=== PATIENT | male | born 1945 | race Caucasian/White ===

== ENCOUNTER → 2018-05-05 15:30 | Outpatient (CLI) | payer OTHER, SELFPAY | PROVIDERS: Referring Provider Otolaryngology Otolaryngology/Facial Plastic Surgery; Visit Provider Otolaryngology Otolaryngology/Facial Plastic Surgery | DX: J32.0 Chronic maxillary sinusitis (principal) | CPT/HCPCS: 87070; 87077; 87186; 87205 ==

== ENCOUNTER 2021-05-18 16:52 | Outpatient (CLI) | payer OTHER, SELFPAY ==
--- NOTE | 2021-05-18 13:40 | NASAL_PTH ---
PATIENT: PRANAY CUTLER Jr. LOC: [facility] U#:[id number] AGE/SX: 75/M ROOM: RE05/18/[address]: Dr. Elieser Richmond MD : 1945 BED: DIS: 05/18/2021 SPEC #: [id number] RECD: 05/18/21 16:52 STATUS: GISEL HARRIS #: [id number] MONICA: 05/18/21 13:[address]: Elieser Richmond DEPT: SURGICAL PATHOLOGY RECD BY: Fe Reed ENTERED: 05/21/21 10:29 SP TYPE: NASAL SPEC OTHR DR: Dr. Leonel Valles MD Tissues: Soft tissues, NOS Procedures: Surgery Specimen Level IV HEADER OPERATION: Not noted PRE-OP DIAGNOSIS: Right nasal mass TISSUE SUBMITTED: Right nasal mass MICROSCOPIC DIAGNOSIS Right nasal mass, biopsy: Pyogenic granuloma with ulceration and associated purulent material and acute inflammation. AM:leon 05/22/2021 MICROSCOPIC DESCRIPTION Slides are reviewed. GROSS DESCRIPTION Received is one container labeled with the patient's name and not further designated. The specimen consists of a polypoid fragment of wilks tissue measuring 0.8 x 0.7 x 0.3 cm. The specimen is bisected and totally submitted in one cassette. / AM:leon 05/21/2021 TC:2 CPT: 24031
== END 2021-05-18 23:59 | disposition home or self-care (01) ==
PROVIDERS: PCP Internal Medicine; Visit Provider Otolaryngology
DX: L98.0 Pyogenic granuloma (principal)
CPT/HCPCS: 88305

== ENCOUNTER 2021-06-18 09:15 | Outpatient (CLI) | payer MEDICARE, SELFPAY ==
--- NOTE | 2021-06-18 09:40 | RAD_ITS ---
EXAM: DOUBLE CONTRASTED ESOPHAGRAM. INDICATION: 75-year-old male presenting with dysphagia.. TECHNIQUE: Standard esophagram with barium and effervescent capsules. Fluoroscopy time 2:33 minutes. FINDINGS: Normal esophageal motility was observed. No evidence of esophageal diverticula, strictures or intraluminal masses. Unremarkable transit of contrast through the esophagus. Mild irregularity in the esophageal contractility. Angulation of the gastroesophageal junction visualized that resulted in retention of the barium pill, barium pill did not pass however dissolved with fluid. No evidence of gastroesophageal reflux was seen. RAD/Esophagus Dual Contrast IMPRESSION: Mild irregularity in the esophageal contractility. Delayed transit of barium pill at the gastroesophageal junction. Electronically Signed: Kade Griffiths MD at 11:51 EDT Reading Location ID and State: [facility] / [place] Tel , Service support ,
== END 2021-06-18 23:59 | disposition home or self-care (01) ==
LOC: RAD 09:20
PROVIDERS: PCP Internal Medicine; Visit Provider Otolaryngology
DX: R13.10 Dysphagia, unspecified (principal)
CPT/HCPCS: 74221

== ENCOUNTER → 2021-11-15 | Outpatient (CLI) | payer MEDICARE, SELFPAY ==
--- NOTE | 2021-11-15 13:01 | ECHOD_ITS ---
Reason For Study: MURMUR Procedure This was a 2D Doppler, Color Flow transthoracic echocardiogram. The study was technically difficult. Exam performed in department. Left Ventricle Normal LV size. Left ventricular systolic function is normal. The estimated ejection fraction is 65 %. No evidence for diastolic dysfunction. No regional wall motion abnormalities noted. Right Ventricle Normal RV size. Normal systolic function. Atria Normal left atrium. Normal right atrium. No doppler evidence for ASD. Mitral Valve There is mild mitral annular calcification. Normal mitral valve. Trivial mitral valve insufficiency. Tricuspid Valve Normal tricuspid valve. Trivial tricuspid valve insufficiency. Right ventricular systolic pressure estimated to be 28 mmHg. Aortic Valve The aortic valve is not well visualized, however, there appears to be diffuse thickening, calcification, and partial restriction. Moderate aortic stenosis. Pulmonic Valve The pulmonic valve is not well visualized. Great Vessels Normal sized aortic root. Pericardium/Pleural No pericardial effusion. MMode/2D Measurements & Calculations LVIDd: 4.8 cm IVSd: 1.0 cm LVOT diam: 2.0 cm LVIDs: 3.2 cm LVPWd: 1.0 cm LVOT area: 3.2 cm2 RVDd: 3.7 cm FS: 33.0 % Ao root diam: 3.3 cm LAV(MOD-bp): 54.6 ml Aortic Valve Planimetry: 1.1 cm2 LAV(MOD-bp) Indexed: 27.5 ml/m2 LAV(MOD-sp2): 51.3 ml LAV(MOD-sp4): 51.6 ml LA dimension(2D): 3.7 cm LA A4 area: 19.1 cm2 RA A4 area: 17.9 cm2 Time Measurements MV dec time: 0.27 sec Doppler Measurements & Calculations MV E max zhen: 92.9 cm/sec Lat Peak E' Zhen: 9.2 cm/sec Med Peak E' Zhen: 9.8 cm/sec MV A max zhen: 101.0 cm/sec E/E' lat: 10.1 E/E' med: 9.5 MV E/A: 0.92 MV dec slope: 341.0 cm/sec2 Ao V2 max: 334.4 cm/sec LV V1 max: 105.4 cm/sec Ao max P.8 mmHg LV V1 max P.4 mmHg Ao V2 mean: 248.9 cm/sec LV V1 mean P.8 mmHg Ao mean P.9 mmHg LV V1 mean: 79.5 cm/sec Ao V2 VTI: 75.7 cm LV V1 VTI: 24.5 cm JUN(I,D): 1.0 cm2 JUN(V,D): 1.0 cm2 SV(LVOT): 79.1 ml PA V2 max: 107.7 cm/sec TR max zhen: 250.0 cm/sec TR max P.0 mmHg ECHO/Echo Complete Interpretation Summary The study was technically difficult. Left ventricular systolic function is normal. The estimated ejection fraction is 65 %. There is mild mitral annular calcification. Trivial mitral valve insufficiency. Trivial tricuspid valve insufficiency. Moderate aortic stenosis. Right ventricular systolic pressure estimated to be 28 mmHg. No evidence for diastolic dysfunction. Ordering Physician: Toi Taylor Referring Physician: Leonel Valles Performed By: Stephanie Finch, DUSTY, RVT
--- NOTE | 2021-11-15 13:01 | CDU_ITS ---
Reason For Study: Carotid artery disease Rt. Velocities/BP Lt. Velocities/BP Prox CCA 91.2/16.3 cm/sec. Prox CCA 88.8/20 cm/sec. Mid CCA 85.1/16.3 cm/sec. Mid CCA 87.6/21.2 cm/sec. Dist CCA 99.8/21.2 cm/sec. Dist CCA 72.8/17.6 cm/sec. Prox ICA 67.9/20 cm/sec. Prox ICA 198.2/46.2 cm/sec. Mid ICA 66.7/17.6 cm/sec. Mid ICA 1304/24.1 cm/sec. Dist ICA 65.4/16.3 cm/sec. Dist ICA 92.9/21.4 cm/sec. Rt. ICA/CCA = 0.74. Lt. ICA/CCA = 2.26. Prox ECA 96.1/11.4 cm/sec. Prox ECA 202.9/13.7 cm/sec. Rt. Vert. 47/12.6 cm/sec. Lt. Vert. 50.9/13.5 cm/sec. Right Extracranial There is intimal thickening but no significant atherosclerotic plaque noted in the right common carotid artery. There is heterogeneous, irregular atherosclerotic plaque noted in the right internal carotid artery. There is heterogeneous, irregular atherosclerotic plaque noted in the right external carotid artery. Antegrade flow is noted in the right vertebral artery. Left Extracranial There is intimal thickening but no significant atherosclerotic plaque noted in the left common carotid artery. There is heterogeneous, irregular atherosclerotic plaque noted in the left internal carotid artery. There is heterogeneous, irregular atherosclerotic plaque noted in the left external carotid artery. Antegrade flow is noted in the left vertebral artery. Procedure Carotid Duplex [id number]. This is a Carotid Duplex examination using B-mode, color flow and specral Doppler. Exam performed in department. VL/Carotid Duplex Ultrasound Interpretation Summary Mild (<50%) stenosis right extracranial internal carotid. Moderate (50-69%) stenosis left extracranial internal carotid. Patent and antegrade vertebrals bilaterally. Ordering Physician: Toi Taylor Referring Physician: Leonel Valles M.D. Performed By: Tali Dixon RVT
== END | disposition home or self-care (01) ==
LOC: CVS 12:56
PROVIDERS: PCP Internal Medicine; Referring Provider Internal Medicine Cardiovascular Disease; Visit Provider Internal Medicine Cardiovascular Disease
DX: R06.02 Shortness of breath (principal); I65.22 Occlusion and stenosis of left carotid artery; I10 Essential (primary) hypertension; E78.00 Pure hypercholesterolemia, unspecified; I35.0 Nonrheumatic aortic (valve) stenosis
CPT/HCPCS: 93306; 93880

== ENCOUNTER 2022-02-05 09:59 | Outpatient (CLI) | payer MEDICARE, SELFPAY ==
[2022-02-05 11:19] LABS: Absolute Lymphocyte Count 1.36 X10^3/uL (0.83-4.51); Absolute Neutrophil Count 4.2 X10^3/uL (2.0-7.7); Basophil# 0.06 X10^3/uL; Basophil% 0.9 % (0-1); Eosinophil# 0.31 X10^3/uL; Eosinophils% 4.7 % (0-5); Hemoglobin 14.1 g/dL (13.0-16.5); Lymphocyte # 1.36 X10^3/ul (0.83-4.51); Lymphocyte % 20.5 % (19-41); Mean Corp Hgb Conc 32.8 g/dL (32-36); Mean Corpuscular Volume 94.5 fL (80-94); Mean Platelet Vol. 9.2 fl (6.2-12.0); Monocyte# 0.65 X10^3/uL; Monocyte% 9.8 % (0-10); NRBC Flagged by Analyzer 0 % (0-5); Neutrophil # 4.23 X10^3/uL (2.7-7.7); Neutrophil % 63.6 % (47-70); Platelet Count 360 K/mm3 (150-450); RBC Distribution Width CV 12.8 % (11.6-14.6); RBC Distribution Width SD 44.2 fl (35.1-43.9); Red Blood Count 4.55 M/mm3 (4.6-6.2); White Blood Count 6.6 K/mm3 (4.4-11.0)
[2022-02-05 11:41] LABS: BNP,B-Type NATRIURETIC PEPTIDE 5.1 pg/mL (0-100)
[2022-02-05 11:55] LABS: Anion Gap 4 (5-15); BUN 15 mg/dL (7-18); BUN/Creat Ratio 15.2 RATIO (10-20); Calcium,Total 9.6 mg/dL (8.5-10.1); Chloride 101 mmol/L (98-107); Creatinine, Serum 0.99 mg/dL (0.70-1.30); EST Glomerular Filtration Rate 78 mL/min (>60); Est Glom Filt Rate - Afr Amer 95 mL/min (>60); Glucose 120 mg/dL (74-106); Potassium 3.3 mmol/L (3.5-5.1); Sodium Level 140 mmol/L (136-145); Thyroid Stim Hormone (TSH) 3.73 uIU/mL (0.358-3.74)
== END 2022-02-05 23:59 | disposition home or self-care (01) ==
LOC: LAB 10:00
PROVIDERS: PCP Internal Medicine; Referring Provider Nurse Practitioner Family; Visit Provider Nurse Practitioner Family
DX: R06.02 Shortness of breath (principal); I35.0 Nonrheumatic aortic (valve) stenosis; R91.8 Other nonspecific abnormal finding of lung field; E78.00 Pure hypercholesterolemia, unspecified
CPT/HCPCS: 36415; 80048; 83880; 84443; 85025

== ENCOUNTER → 2022-02-19 | Outpatient (CLI) | payer MEDICARE, SELFPAY ==
--- NOTE | 2022-02-19 14:47 | PFTCOMP_ITS ---
COMPLETE PULMONARY FUNCTION TEST INTERPRETATION Brief HPI: Patient is a 76-year-old male, currently under the care of Ramsey Linares, who presents to [facility] for complete pulmonary function tests secondary to diagnosis of dyspnea. Respiratory therapist reports good effort and reproducible results. Interpretation: Forced expiration spirometry shows no large airways obstructive ventilatory defect with an FEV1 of 115% predicted. There is no significant bronchodilator response by strict ATS criteria. Spirograms are of good quality and plateau normally. The respiratory flow volume loop shows a normal pattern. Lung volumes by body plethysmography show a normal total lung capacity at 4.98 L, 100% predicted. All other lung volumes are within normal limits. Diffusion capacity by carbon monoxide is normal at 74% predicted. The airway resistance is normal. No previous pulmonary function tests were available for review. Impression: These pulmonary function tests are within normal limits
== END | disposition home or self-care (01) ==
LOC: PSN 12:24
PROVIDERS: PCP Internal Medicine; Visit Provider Nurse Practitioner Family
DX: R06.02 Shortness of breath (principal)
CPT/HCPCS: 94060; 94726; 94729

== ENCOUNTER → 2022-03-05 | Outpatient (CLI) | payer MEDICARE, SELFPAY ==
--- NOTE | 2022-03-05 11:45 | STRESSREP ---
Stress Test Report Date: 03-05-2022 Procedure: Pharmacologic stress nuclear imaging study Indications: Shortness of breath/dyspnea; aortic valve disease; carotid artery disease Consent: Per the patient Procedure: The patient underwent pharmacologic (Regadenoson 0.4mg ) evaluation with a peak heart rate of 111 beats per minute (77%predicted maximal heart rate) and a resting blood pressure of 154/84 mmHg and a peak blood pressure of 160/90 mmHg. The baseline ECG demonstrated normal sinus rhythm. The peak pharmacologic ECG demonstrated no obvious ECG change. There were no cardiac dysrhythmias pretest, during pharmacologic infusion, or recovery. There was no complaint of chest discomfort during pharmacologic infusion or recovery. The examination was discontinued secondary to completion of protocol. Impression: 1. Pharmacologic (Regadenoson) evaluation 2. Peak pharmacologic ECG with no obvious ECG changes. 3. There were no cardiac dysrhythmias pretest, during pharmacologic infusion, or recovery. 4. Nuclear images pending Myocardial perfusion imaging study: Technique: The patient was injected with 11.5 millicuries of technetium 99m Cardiolite and subsequently rest SPECT Cardiolite nuclear imaging was obtained in the horizontal long, vertical long, and short axis views. The patient underwent pharmacologic (Regadenoson) evaluation with a peak heart rate of 111 beats per minute (77% percent predicted maximal heart rate) and a resting blood pressure of 154/84 mmHg and a peak blood pressure of 160/90 mmHg. The patient was injected with 34.1 millicuries of technetium 99m Cardiolite and subsequently stress SPECT Cardiolite nuclear imaging was obtained in the horizontal long, vertical long, and short axis views. A gated Cardiolite study at peak stress was obtained. Interpretation: Rest and stress SPECT Cardiolite nuclear imaging status post realignment, normalization, and attenuation correction demonstrate relative uniform tracer uptake and myocardial perfusion appearing within normal limits. There is end systolic thickening and brightening. The gated Cardiolite study demonstrates myocardial thickening and inward wall motion. The reported LVEF is 72%. Impression: 1. Rest and stress SPECT Cardiolite nuclear imaging demonstrate relative uniform tracer uptake and myocardial perfusion appearing within normal limits. 2. The gated Cardiolite study reports an LVEF of 72%. This note was generated with [employer]ule[employer] software. It may contain incorrect words, spelling, and punctuation that were not noted in checking the note before signing.
== END | disposition home or self-care (01) ==
LOC: CVS 07:14
PROVIDERS: PCP Internal Medicine; Visit Provider Nurse Practitioner Family
DX: R06.02 Shortness of breath (principal); I77.9 Disorder of arteries and arterioles, unspecified; E11.9 Type 2 diabetes mellitus without complications; G47.33 Obstructive sleep apnea (adult) (pediatric); I10 Essential (primary) hypertension; E78.00 Pure hypercholesterolemia, unspecified; I35.0 Nonrheumatic aortic (valve) stenosis
CPT/HCPCS: 78452; 93017; A9500; A4216; J2785

== ENCOUNTER 2023-03-07 16:38 | Emergency (ER) | payer MEDICARE, SELFPAY ==
[2023-03-07 16:39] VITALS: BP 144/74; PULSE 91; RESP 14; TEMP 36.8; O2SAT 98; BMI 29.5
--- NOTE | 2023-03-07 17:44 | US_ITS ---
INDICATION: SWELLING EXAMINATION: Ultrasound US Venous Duplex LE Bilat Complete TECHNIQUE: Richardson scale, pulse wave, and color flow Doppler imaging was performed of the lower extremity venous system. The bilateral greater saphenous, common femoral, femoral, and popliteal veins were interrogated. COMPARISON: FINDINGS: There is normal compression, augmentation, and signal throughout the visualized deep lower extremity veins. No mass or fluid collection. US/Venous Duplex Imag/Obdulio Extrem IMPRESSION: No sonographic evidence of deep venous thrombosis bilaterally. Electronically Signed: Tomer Hanks DO at 18:43 EST Reading Location ID and State: [facility] / [place] Tel [phone], Service support ,
--- NOTE | 2023-03-07 17:59 | ED.VIS.LOWEX ---
HPI History of Present Illness Chief Complaint: Lower Extremity Injury Informant: patient and spouse/S.O. Narrative Narrative: Patient presents with concern for DVT. Patient states he has had alternating swelling of right left leg intermittently since the end of November since he had cervical spine surgery. No numbness or tingling now. His therapist noted it today called his primary physician who referred him in here. He is not having coughing or trouble breathing. He has never had a DVT. He states his left leg was more swollen and painful this morning but it is gone down again. This is a typical pattern. [facility] Medical History Adrenal incidentaloma Essential hypertension Left carotid stenosis Multiple lung nodules on CT Nonrheumatic aortic (valve) stenosis ERNESTO (obstructive sleep apnea) Pure hypercholesterolemia Solitary nodule of right lobe of thyroid Type 2 diabetes mellitus Umbilical hernia Home Medications lisinopril 20 mg-hydrochlorothiazide 12.5 mg tablet 1 tab PO DAILY 03/04/23 [History Last Taken Unknown] oxycodone 5 mg tablet 5 mg PO PRN 03/04/23 [History Last Taken Unknown] tamsulosin 0.4 mg capsule 0.4 mg PO DAILY 03/04/23 [History Last Taken Unknown] Allergy/AdvReac Type Severity Reaction Status Date / Time No Known Allergies Allergy Verified 03/07/23 16:39 Family History Father CAD (coronary artery disease) Hypertension Mother Hypertension Surgical History History of back surgery (01/17/23) History of carpal tunnel surgery History of tonsillectomy Hx of cervical spine surgery (~11/29/22) Social History Smoking Status: Never smoker alcohol intake: never substance use type: does not use caffeine: Yes Type: carbonated beverages Number of servings: 3 and tea Number of servings: 8 ROS ROS ED Constitutional Constitutional ED: Denies chills or fever(s) ENT ENT ED: Denies rhinorrhea or sore throat Cardiovascular Cardiovascular: Denies chest pain, palpitations or racing heartbeat Respiratory/Chest Respiratory/Chest: Denies cough or dyspnea Gastrointestinal Gastrointestinal: Denies abdominal pain, nausea or vomiting Musculoskeletal Musculoskeletal: Reports other Details: See history of present illness Neurologic Neurologic: Denies paresthesias or weakness Hematologic/Lymphatic Hematologic/Lymphatic: Denies easy bleeding or easy bruising Allergic/Immunologic Allergic/Immunologic ED: Denies urticaria EXAM Physical Exam Narrative Exam Narrative: CONSTITUTIONAL: Patient is nontoxic in appearance. The patient looks comfortable. Work of breathing looks normal. HEENT: No notable trauma. Mucous membranes moist. EYES: No conjunctival injection. No pallor. NECK:No JVD. No stridor. CARDIOVASCULAR: Regular rate. Regular rhythm. No notable murmur. No JVD. RESPIRATORY: No respiratory distress. Breathing is unlabored. No wheezes. No rhonchi. No rales. No pain with a deep breath. No chest wall tenderness. Saturations are normal at 98% on room air showing no hypoxia GASTROINTESTINAL: Not distended. Bowel sounds are normal. No tenderness. GENITOURINARY: No CVA tenderness. MUSCULOSKELETAL: Atraumatic. Patient does have some bilateral peripheral edema. A little bit of pitting over the distal anterior ankle. No erythema or warmth. Extremities are not cold or notably hot. No rashes. I feel no cord. There is no asymmetry at this time. NEUROLOGICAL: Patient is alert and appropriate. No focal deficit noted. SKIN: No noted rashes. No diaphoresis. PSYCHIATRIC: Patient is calm. Mood is appropriate. Const Vital Signs: 03/07/23 16:39 Temperature 98.3 F Temperature Source Temporal Pulse Rate 91 Respiratory Rate 14 Blood Pressure 144/74 H Blood Pressure Mean 97 Pulse Ox 98 Oxygen Delivery Method Room Air MDM MDM MDM Narrative Medical decision making narrative: Legs are negative for DVT. Patient has had symptoms in November. Further workup can be done by his primary physician. Radiography Diagnostic Testing: Clinical Impression(s) from Imaging Studies Venous Duplex 03/07/23 17:44 IMPRESSION: No sonographic evidence of deep venous thrombosis bilaterally. Electronically Signed: Tomer Hanks DO at 18:43 EST Reading Location ID and State: [facility] / [place] Tel [phone], Service support , Discharge Plan Triage Chief Complaint: Lower Extremity Injury ED Provider: David Bland Dx/Rx/DC Orders Clinical Impression: Swelling of lower leg Instructions: ED Lymphedema Prescriptions: No Action lisinopril-hydrochlorothiazide 20-12.5 mg tablet 1 tab PO DAILY tamsulosin 0.4 mg capsule 0.4 mg PO DAILY Patient Comments: TAKE 1 CAPSULE BY MOUTH TWICE DAILY oxycodone 5 mg tablet 5 mg PO PRN Patient Comments: Take 1 tablet by mouth every 8 hours as needed for pain for up to 5 days. Primary Care Provider: Leonel Valles Referrals: Leonel Valles MD [Primary Care Provider] - As soon as possible Disposition Disposition: Home, Self Care
[2023-03-07 19:00] VITALS: RESP 16
== END 2023-03-07 19:54 | disposition home or self-care (01) ==
PROVIDERS: Emergency Provider Emergency Medicine; PCP Internal Medicine; Visit Provider Emergency Medicine
DX: M79.89 Other specified soft tissue disorders (principal); E11.9 Type 2 diabetes mellitus without complications; I10 Essential (primary) hypertension; E78.00 Pure hypercholesterolemia, unspecified; Z79.899 Other long term (current) drug therapy
CPT/HCPCS: 93970; 99282

== ENCOUNTER → 2023-03-24 | Outpatient (CLI) | payer MEDICARE, SELFPAY ==
--- NOTE | 2023-03-24 10:04 | ECHOCS_ITS ---
Reason For Study: Murmur, SOB Procedure This was a 2D Doppler, Color Flow transthoracic echocardiogram. The study was technically difficult. Contrast injection was performed. Exam performed in department. Left Ventricle Normal LV size. Left ventricular systolic function is normal. The estimated ejection fraction is 65 %. No regional wall motion abnormalities noted. Right Ventricle Normal RV size. Normal systolic function. Atria Normal left atrium. Normal right atrium. Mitral Valve Normal mitral valve. Tricuspid Valve Normal tricuspid valve. Aortic Valve Trisinus/trileaflet aortic valve. Moderate focal aortic valve calcification. Peak aortic valve gradient 53 mmHg. Mean aortic valve gradient 29 mmHg. Moderate aortic stenosis. Great Vessels Normal aortic root. The pulmonary artery is normal size. Normal inferior vena cava. Pericardium/Pleural No pericardial effusion. Medication 20 gauge I.V. with prn adaptor inserted into right arm. Diluted definity 2ml given slow IV push to enhance endocardial definition. Performed a rapid injection of agitated mix of 9 cc saline and 1cc air to assess for atrial septal defect. MMode/2D Measurements & Calculations LVIDd: 4.4 cm IVSd: 0.95 cm LVOT diam: 2.0 cm LVIDs: 2.8 cm LVPWd: 0.91 cm LVOT area: 3.2 cm2 RVDd: 3.5 cm FS: 36.8 % Ao root diam: 3.6 cm LAV(MOD-bp): 53.5 ml LVAd ap4: 33.0 cm2 LA dimension: 4.4 cm LAV(MOD-bp) Indexed: 29.3 ml/m2 LVLd ap4: 8.8 cm LAV(MOD-sp2): 55.0 ml EDV(MOD-sp4): 102.3 ml LAV(MOD-sp4): 47.6 ml EDV(sp4-el): 104.7 ml LVAs ap4: 19.9 cm2 LVLs ap4: 7.7 cm ESV(MOD-sp4): 43.8 ml ESV(sp4-el): 43.7 ml EF(MOD-sp4): 57.2 % EF(sp4-el): 58.3 % SV(MOD-sp4): 58.5 ml SV(sp4-el): 61.0 ml LA A4 area: 17.7 cm2 RA A4 area: 15.4 cm2 TAPSE: 2.0 cm Time Measurements MV dec time: 0.19 sec Doppler Measurements & Calculations MV E max zhen: 87.5 cm/sec Lat Peak E' Zhen: 8.8 cm/sec Med Peak E' Zhen: 9.2 cm/sec MV A max zhen: 104.0 cm/sec E/E' lat: 10.0 E/E' med: 9.6 MV E/A: 0.84 MV V2 max: 116.3 cm/sec MV P1/2t max zhen: 100.0 cm/sec Ao V2 max: 362.5 cm/sec MV max P.4 mmHg MV P1/2t: 60.6 msec Ao max P.6 mmHg MV V2 mean: 57.1 cm/sec Ao V2 mean: 252.8 cm/sec MV mean P.6 mmHg MV dec slope: 483.5 cm/sec2 Ao mean P.0 mmHg MV V2 VTI: 27.0 cm MVA(P1/2t): 3.6 cm2 Ao V2 VTI: 82.9 cm AV (velocity ratio): 0.26 MVA(VTI): 2.5 cm2 JUN(I,D): 0.82 cm2 JUN(V,D): 0.76 cm2 LV V1 max: 87.0 cm/sec SV(LVOT): 68.3 ml PA V2 max: 99.5 cm/sec LV V1 max P.0 mmHg PA V2 mean: 63.8 cm/sec LV V1 mean P.5 mmHg LV V1 mean: 56.7 cm/sec LV V1 VTI: 21.5 cm ECHO/Echo Complete W/ Contrast Interpretation Summary Normal LV size. Left ventricular systolic function is normal. The estimated ejection fraction is 65 %. Moderate focal aortic valve calcification. Mean aortic valve gradient 29 mmHg. Moderate aortic stenosis. Contrast injection was performed. Ordering Physician: Dimitris Bo Referring Physician: Leonel Valles M.D. Performed By: Taurus Mcwilliams RCS
== END | disposition home or self-care (01) ==
PROVIDERS: PCP Internal Medicine; Referring Provider Internal Medicine Cardiovascular Disease; Visit Provider Internal Medicine Cardiovascular Disease
DX: R06.02 Shortness of breath (principal)
CPT/HCPCS: 93306; Q9957; A4216; C8929

== ENCOUNTER → 2023-05-29 | Outpatient (CLI) | payer MEDICARE, SELFPAY | END | disposition home or self-care (01) | LOC: LABSPEC 15:25 | PROVIDERS: PCP Internal Medicine; Referring Provider Otolaryngology Otolaryngology/Facial Plastic Surgery; Visit Provider Otolaryngology Otolaryngology/Facial Plastic Surgery | DX: J32.8 Other chronic sinusitis (principal) | CPT/HCPCS: 87070; 87205 ==

== ENCOUNTER → 2023-09-09 | Outpatient (CLI) | payer MEDICARE, SELFPAY ==
--- NOTE | 2023-09-09 15:02 | CT_ITS ---
INDICATION: CHRONIC SINUSITIS EXAMINATION: CT SINUSES - CT Sinuses W/O Contrast Injection TECHNIQUE: Helically acquired images were obtained of the paranasal sinuses. The protocol utilizes one or more of the following dose reduction techniques: automated exposure control, adjustment of mA and/or kV according to patient size,and/or use of iterative reconstruction technique. IV Contrast dosage and agent: RADIATION DOSAGE (If Supplied By Facility): CTDIvol = ( 33.06 ) mGy, DLP = ( 796.66 ) mGycm COMPARISON: FINDINGS: FRONTAL SINUSES AND RECESSES: Minimal mucosal thickening of the frontal sinus. ETHMOID AIR CELLS: Clear. MAXILLARY SINUSES: Clear. OSTIOMEATAL COMPLEXES: Clear and normally formed. SPHENOID SINUSES: Clear. SPHENOETHMOIDAL RECESSES: Clear. ANCILLARY FINDINGS: NASAL TURBINATES: Unremarkable. NASAL SEPTUM: Midline. ORBITS: Unremarkable. VISUALIZED DENTITION: No periodontal osseous erosion. ANTERIOR CRANIAL FOSSA: Unremarkable. CT/Sinus/Facial Bone IMPRESSION: Minimal mucosal thickening of the frontal sinus. Electronically Signed: Tomer Hanks DO at 16:13 EDT Reading Location ID and State: [facility] / [place] Tel [phone], Service support ,
== END | disposition home or self-care (01) ==
PROVIDERS: PCP Internal Medicine; Referring Provider Otolaryngology; Visit Provider Otolaryngology
DX: J32.8 Other chronic sinusitis (principal)
CPT/HCPCS: 70486

== ENCOUNTER 2024-06-01 07:19 | Emergency (ER) | payer MEDICARE, SELFPAY ==
[2024-06-01 07:20] VITALS: BP 163/117; PULSE 82; RESP 16; TEMP 36.5; O2SAT 98; BMI 33.5
[2024-06-01] MEDS: Mixture 30 ML Bottle 20 ML TOPICAL (07:34)
--- NOTE | 2024-06-01 07:35 | EDS_ITS ---
HPI History of Present Illness Chief Complaint: Nosebleed Detail of Chief Complaint: Spontaneous epistaxis left naris Informant: patient and spouse/S.O. Onset/Context/Timing Onset: Today (0400) Context: Sudden Onset Timing: Continuous and Waxes and wanes Quality: Bright red blood left nares and posterior pharynx Location: Left side Current Severity: Mild Maximum Severity: Moderate Worsened by: Nothing Relieved by: Nothing Associated Symptoms Associated Symptoms: None Narrative Narrative: Patient is a 78-year-old male. He is seen by Dr. Elieser Richmond. He states he has had his nose cauterized more than once. He presents with epistaxis that awoke him from sleep at 0400. He is on no anticoagulant or antithrombotic. He does report sinus pressure for the past 2 weeks. He does have history of hypertension. He states he took his blood pressure medication this morning. His blood pressure in triage was 163/117. He states his pressure is normally 140 systolic on the high side 150. He denies visual, ocular or auditory symptoms. There is no history of bruising easily. Prior similar symptoms: Yes Recent Illness/Hospitalization: No PFSH PFSH Medical History Left carotid stenosis Adrenal incidentaloma Multiple lung nodules on CT Umbilical hernia Solitary nodule of right lobe of thyroid ERNESTO (obstructive sleep apnea) Essential hypertension Type 2 diabetes mellitus Pure hypercholesterolemia Nonrheumatic aortic (valve) stenosis Home Medications ?Medication ?Instructions ?Recorded ?Last Taken ?Type lisinopril 20 1 tab PO DAILY 03/04/23 Unkn own History mg-hydrochlorothiazide 12.5 mg tablet oxycodone 5 mg tablet 5 mg PO PRN 03/04/23 Unknown History tamsulosin 0.4 mg capsule 0.4 mg PO DAILY 03/04/23 Unk nown History cephalexin 500 mg capsule 500 mg PO Q12 #10 CAPSULES 0 06/01/24 Unknown Rx Allergy/AdvReac Type Severity Reaction Status Date / Time No Known Allergies Allergy Verified 06/01/24 07:19 Family History Father CAD (coronary artery disease) Hypertension Mother Hypertension Surgical History Hx of cervical spine surgery (~11/29/22) History of back surgery (01/17/23) History of carpal tunnel surgery History of tonsillectomy Social History Smoking Status: Never smoker alcohol intake: never substance use type: does not use caffeine: Yes Type: carbonated beverages Number of servings: 3 and tea Number of servings: 8 ROS ROS ED Constitutional Constitutional ED: Denies chills, fever(s), subjective or sweats Eyes Eyes: Denies blurry vision or change in vision ENT ENT ED: Reports other Details: Per HPI narrative ; Denies rhinorrhea or sore throat Cardiovascular Cardiovascular: Denies chest pain Respiratory/Chest Respiratory/Chest: Denies dyspnea Hematologic/Lymphatic Hematologic/Lymphatic: Denies anemia, easy bleeding or easy bruising EXAM Physical Exam Const Vital Signs: 06/01/24 07:20 Temperature 97.7 F L Temperature Source Temporal Pulse Rate 82 Respiratory Rate 16 Blood Pressure 163/117 H Blood Pressure Mean 132 Pulse Ox 98 Oxygen Delivery Method Room Air Positive well nourished and well developed General Appearance ED: well developed and NAD; Negative for pallor HEENT Reports moist mucous membranes HEENT Narrative: Patient has tissue left naris. Tissue is bloody. There is no obvious blood in the posterior pharynx. There is no abnormality noted on the right side. There is blood noted on the left. There is no obvious source. With use of a nasal speculum able to see up to the inferior turbinate with no obvious bleeding source. Eyes PERRL and EOMs intact bilaterally General Eye ED: Negative for pale conjunctiva or scleral icterus Resp normal respiratory effort and clear to auscultation bilaterally Cardio regular rate, regular rhythm, S1 normal heart sound and S2 normal heart sound; Negative for no murmurs Rate: other Other Details: Crescendo and decrescendo and murmur consistent with mitral valve prolapse grade 2 Extremity normal to inspection Neuro oriented x3 and CN's II-XII intact bilaterally Sensorium / Orientation: alert Psych mental status grossly normal Skin no rashes or lesions noted, no wounds and skin turgor normal General Skin Exam: Negative for jaundice or pallor MDM MDM MDM Narrative Medical decision making narrative: Patient with spontaneous epistaxis. This may be related to his blood pressure. Will anesthetize nares using Austen solution. Will reexam and determine if there is a site of bleeding since he states he has been cauterized in the past. If there is no site of bleeding and bleeding continues will place pack. Since patient is not hemodynamically stable, has no orthostatic symptoms and does not appear pale in my opinion there is no indication for laboratory testing and specifically CBC. History & Record Review Additional record(s) reviewed:: Prior outpatient record (Outpatient record November 2022 for orthopedic clearance, essential hypertension) and Prior ED visit (ER visit March 07, 2023 for swelling of lower extremity.) Treatment and Re-Evaluation Comments:: Patient ambulated without difficulty. He was discharged to home. Procedures Other Procedures Procedure(s): Cotton saturated with Austen solution was removed. There is no bleeding source noted inferior the turbinates. Patient states he still has bleeding and has blood going down the back of his throat. In light of this and 8 cm Merocel pack was placed on the left side. Will reassess in 15 minutes. He received first dose of cephalexin in the emergency department. Discharge Plan Triage Chief Complaint: Nosebleed ED Provider: Luke Venegas Dx/Rx/DC Orders Clinical Impression: Acute posterior epistaxis, Type 2 diabetes mellitus, Elevated blood pressure reading with diagnosis of hypertension Instructions: ED Epistaxis (Adult) Prescriptions: New cephalexin 500 mg capsule 500 mg PO Q12 Qty: 10 0RF No Action lisinopril-hydrochlorothiazide 20-12.5 mg tablet 1 tab PO DAILY tamsulosin 0.4 mg capsule 0.4 mg PO DAILY Patient Comments: TAKE 1 CAPSULE BY MOUTH TWICE DAILY oxycodone 5 mg tablet 5 mg PO PRN Patient Comments: Take 1 tablet by mouth every 8 hours as needed for pain for up to 5 days. Primary Care Provider: Leonel Valles Referrals: Elieser Richmond MD [Med Staff - Active Staff] - 3-5 Days Leonel Valles MD [Primary Care Provider] - Print Language: Frisian Disposition Disposition: Home, Self Care
[2024-06-01] MEDS: Cephalexin 250 MG Capsule 500 MG PO (08:11)
== END 2024-06-01 08:45 | disposition home or self-care (01) ==
PROVIDERS: Emergency Provider Emergency Medicine; PCP Internal Medicine; Visit Provider Emergency Medicine
DX: R04.0 Epistaxis (principal); E11.9 Type 2 diabetes mellitus without complications; I10 Essential (primary) hypertension; E78.00 Pure hypercholesterolemia, unspecified; Z79.899 Other long term (current) drug therapy
CPT/HCPCS: 30905; 99282

== ENCOUNTER → 2024-06-30 | Outpatient (CLI) | payer MEDICARE, SELFPAY ==
--- NOTE | 2024-06-30 13:54 | ECHOD_ITS ---
Reason For Study Reason For Study: NONRHEUMATIC AORTIC STENOSIS Procedure This was a 2D Doppler, Color Flow transthoracic echocardiogram. Exam performed in department. Left Ventricle Normal LV size. Left ventricular systolic function is normal. The left ventricular ejection fraction is 70 %. Stage 1 diastolic dysfunction. No regional wall motion abnormalities noted. Right Ventricle Normal RV size. Normal systolic function. Atria Normal left atrium. Normal right atrium. Mitral Valve Normal mitral valve. Tricuspid Valve Normal tricuspid valve. Mild (1+) tricuspid valve insufficiency. Pulmonary artery systolic pressure is 27 mmHg. Aortic Valve Trisinus/trileaflet aortic valve. Moderate focal aortic valve calcification. Peak aortic valve gradient 70 mmHg. Mean aortic valve gradient 42 mmHg. Pulmonic Valve Normal pulmonic valve. Great Vessels Normal aortic root. The pulmonary artery is normal size. Inferior vena cava collapse with respiration. Pericardium/Pleural No pericardial effusion. MMode/2D Measurements & Calculations LVIDd: 4.7 cm IVSd: 1.0 cm LVOT diam: 2.0 cm LVIDs: 3.0 cm LVPWd: 1.0 cm LVOT area: 3.2 cm2 RVDd: 3.3 cm FS: 35.5 % Ao root diam: 3.6 cm LAV(MOD-bp): 44.1 ml LVAd ap4: 26.4 cm2 LAV(MOD-bp) Indexed: 24.2 ml/m2 LVLd ap4: 8.0 cm LAV(MOD-sp2): 44.6 ml EDV(MOD-sp4): 73.2 ml LAV(MOD-sp4): 41.9 ml EDV(sp4-el): 74.0 ml LVAs ap4: 14.0 cm2 LVLs ap4: 7.0 cm ESV(MOD-sp4): 26.2 ml ESV(sp4-el): 23.8 ml EF(MOD-sp4): 64.2 % EF(sp4-el): 67.8 % LVAd ap2: 22.0 cm2 SV(MOD-sp4): 47.0 ml SV(MOD-sp2): 32.9 ml LVLd ap2: 8.3 cm SI(MOD-sp4): 25.8 ml/m2 SI(MOD-sp2): 18.0 ml/m2 EDV(MOD-sp2): 52.1 ml EDV(sp2-el): 49.7 ml LVAs ap2: 12.0 cm2 LVLs ap2: 7.1 cm ESV(MOD-sp2): 19.2 ml ESV(sp2-el): 17.2 ml EF(MOD-sp2): 63.2 % SV(sp4-el): 50.2 ml LA dimension(2D): 4.1 cm LA A4 area: 16.1 cm2 RA A4 area: 14.3 cm2 TAPSE: 2.2 cm Time Measurements MV dec time: 0.27 sec Doppler Measurements & Calculations MV E max zhen: 70.2 cm/sec Lat Peak E' Zhen: 5.7 cm/sec Med Peak E' Zhen: 6.5 cm/sec MV A max zhen: 111.3 cm/sec E/E' lat: 12.2 E/E' med: 10.9 MV E/A: 0.63 MV V2 max: 105.3 cm/sec MV P1/2t max zhen: 80.2 cm/sec Ao V2 max: 418.4 cm/sec MV max P.4 mmHg MV P1/2t: 74.2 msec Ao max P.1 mmHg MV V2 mean: 65.4 cm/sec Ao V2 mean: 310.2 cm/sec MV mean P.9 mmHg MV dec slope: 316.6 cm/sec2 Ao mean P.9 mmHg MV V2 VTI: 24.1 cm MVA(P1/2t): 3.0 cm2 Ao V2 VTI: 97.4 cm AV (velocity ratio): 0.23 MVA(VTI): 2.9 cm2 JUN(I,D): 0.71 cm2 JUN(V,D): 0.73 cm2 LV V1 max: 97.3 cm/sec SV(LVOT): 69.2 ml PA V2 max: 104.3 cm/sec LV V1 max P.8 mmHg PA V2 mean: 68.1 cm/sec LV V1 mean P.3 mmHg LV V1 mean: 72.2 cm/sec LV V1 VTI: 21.9 cm TR max zhen: 242.8 cm/sec TR max P.6 mmHg ECHO/Echo Complete Interpretation Summary Normal LV size. Left ventricular systolic function is normal. The left ventricular ejection fraction is 70 %. Moderate focal aortic valve calcification. Mean aortic valve gradient 42 mmHg. Compared to the previous the gradients are worsened in the aortic valve stenosi s appears to be severe. Stage 1 diastolic dysfunction. Ordering Physician: Dimitris Bo Referring Physician: Leonel Valles Performed By: Stephanie Finch, NAGACS, RVT
== END | disposition home or self-care (01) ==
PROVIDERS: PCP Internal Medicine; Referring Provider Internal Medicine Cardiovascular Disease; Visit Provider Internal Medicine Cardiovascular Disease
DX: I35.0 Nonrheumatic aortic (valve) stenosis (principal)
CPT/HCPCS: 93306

== ENCOUNTER 2024-08-16 07:21 | Day surgery (SDC) | payer MEDICARE, SELFPAY ==
--- NOTE | 2024-08-05 15:05 | RAD_ITS ---
PROCEDURE: CHEST PA AND LATERAL 08/05/2024 REASON FOR EXAM: PRE-OPERATIVE: [facility] TECHNIQUE: Frontal and lateral views of the chest. COMPARISON: None FINDINGS: 1.2 x 1.2 cm opacity within the left midlung which may reflect a pulmonary nodule or external to lung. Consider CT of the chest if there is concern for neoplastic process. No large focal consolidations. No pleural effusion or pneumothorax. Cardiac silhouette is within normal limits. Cervical ACDF. RAD/Chest PA and Lateral IMPRESSION: 1.2 x 1.2 cm opacity within the left midlung which may reflect a pulmonary nodu le or external to lung. Consider CT of the chest if there is concern for neoplastic process. No large focal consolidations. Reading Location: [id number]
[2024-08-05 16:07] LABS: Absolute Lymphocyte Count 2.34 X10^3/uL (0.83-4.51); Absolute Neutrophil Count 5.4 X10^3/uL (2.0-7.7); Basophil# 0.09 X10^3/uL; Eosinophils% 4.3 % (0-5); Hematocrit 40.1 % (40-54); Hemoglobin 13.7 g/dL (13.0-16.5); Lymphocyte # 2.34 X10^3/ul (0.83-4.51); Lymphocyte % 25.3 % (19-41); Mean Corp Hgb Conc 34.2 g/dL (32-36); Mean Corpuscular Hgb 31.1 pg (27.0-32.0); Mean Corpuscular Volume 91.1 fL (80-94); Mean Platelet Vol. 9.2 fl (6.2-12.0); Monocyte# 0.98 X10^3/uL; Monocyte% 10.6 % (0-10); NRBC Flagged by Analyzer 0 % (0-5); Neutrophil # 5.42 X10^3/uL (2.7-7.7); Neutrophil % 58.6 % (47-70); Platelet Count 370 K/mm3 (150-450); White Blood Count 9.3 K/mm3 (4.4-11.0)
[2024-08-05 16:33] LABS: Anion Gap 12 (5-15); BUN 11 mg/dL (4-19); BUN/Creat Ratio 11.4 RATIO (10-20); Calcium,Total 9.5 mg/dL (7.6-11.0); Carbon Dioxide 27.8 mmol/L (21.0-32.0); Chloride 100 mmol/L (98-108); Creatinine, Serum 0.92 mg/dL (0.70-1.20); EST Glomerular Filtration Rate 84 (>60); Glucose 108 mg/dL (70-99); Potassium 3.6 mmol/L (3.3-5.1); Sodium Level 140 mmol/L (133-145)
--- NOTE | 2024-08-08 08:41 | PCM.HP.BLA ---
History and Physical Date of Admission: 08/16/24 This is a 78-year-old white male who presents today for outpatient cardiovascular follow-up. He presents for a cardiac follow-up visit. He has a history of hypertension hyperlipidemia aortic stenosis which appears to be moderate and mild carotid stenosis. He returns for routine follow-up visit. He has been compliant with his medications his blood pressures have been under good control he denies any neck arm or jaw discomfort suggest angina no dizziness or diaphoresis no near syncope or syncope. He has been compliant with all his medications. His physical exam demonstrates clear lung gary, regular rate and rhythm and harsh 3/6 systolic murmur noted left sternal border and no pedal edema present. Intake Vital Signs: See EMR Intake Visit Reasons: [facility] Digital Community Manager Required: No Accompanied by: Significant Other Is patient in pain?: No Allergies No Known Allergies Allergy (Verified 06/04/24 10:03) Medications: See EMR Have you fallen in the past year?: No PFSH Medical History Left carotid stenosis Adrenal incidentaloma Multiple lung nodules on CT Umbilical hernia Solitary nodule of right lobe of thyroid ERNESTO (obstructive sleep apnea) Essential hypertension Type 2 diabetes mellitus Pure hypercholesterolemia Nonrheumatic aortic (valve) stenosis Surgical History Hx of cervical spine surgery (~11/29/22) History of back surgery (01/17/23) History of carpal tunnel surgery History of tonsillectomy Family History Father CAD (coronary artery disease) HypertensionMother Hypertension Social History Smoking Status: Never smoker alcohol intake: never substance use type: does not use caffeine: Yes Type: carbonated beverages Number of servings: 3 and tea Number of servings: 8 ROS Const Const: Positive for fatigue and headache(s); Negative for weakness, daytime sleepiness or difficulty sleeping ENT ENT: Positive for headache(s) and Nosebleed/epistaxis; Negative for dizziness Cardio Chest Pain: No Palpitations: No Edema: None Resp Respiratory: Negative for SOB with activity, SOB at rest, SOB orthopnea\SOB lying down or Cough GI GI: Negative nausea, vomiting or heartburn Neuro Neuro: Positive for headache(s); Negative for dizziness, lightheadedness, near syncope or weakness Endo Endo: Positive for fatigue Cardiology Exam Const Appearance: cooperative, healthy appearing, comfortable and no acute distress Nutritional Appearance: well nourished and obese Orientation: alert, awake and oriented x3 Head Head: normal to inspection Ears: hearing grossly normal bilaterally Nose: external nose normal Face and Sinus: face symmetric Mouth: moist mucous membranes Eyes General: appearance normal, both eyes and all related structures Eyelids: eyelids normal EOM: EOM intact bilaterally Neck Neck: normal visual inspection and no JVD Carotids: normal carotid upstroke Chest Chest inspection: normal inspection of the chest, symmetric chest movement and normal respiratory effort; Negative cough Auscultation: Bilateral: Clear to Auscultation Cardio Rate: regular rate Rhythm: regular rhythm Heart sounds: S1 normal, S2 normal and murmur; Negative rub or gallop Murmur: Grade 3/6, soft and CAROLYN loudest primary aortic area GI GI: normal to inspection and obese Neuro General: patient alert, patient awake, patient oriented x3 and CN's II-XI intact bilaterally Skin Skin: no rashes or lesions noted Extremities Pulses: Normal: Right Posterior Tibial Pulse, Left Posterior Tibial Pulse, Right Radial Pulse and Left Radial Pulse Lower Extremity Edema: None: Bilateral Psych Psychological: normal affect Supplemental Info Supplemental Information Echocardiogram from 06/30/2024: Interpretation Summary Normal LV size. Left ventricular systolic function is normal. The left ventricular ejection fraction is 70 %. Moderate focal aortic valve calcification. Mean aortic valve gradient 42 mmHg. Compared to the previous the gradients are worsened in the aortic valve stenosis appears to be severe. Stage 1 diastolic dysfunction. Echocardiogram 03/24/23 Interpretation Summary Normal LV size. Left ventricular systolic function is normal. The estimated ejection fraction is 65 %. Moderate focal aortic valve calcification. Mean aortic valve gradient 29 mmHg. Moderate aortic stenosis. Contrast injection was performed. Echocardiogram from 11/15/2021: Interpretation Summary The study was technically difficult. Left ventricular systolic function is normal. The estimated ejection fraction is 65 %. There is mild mitral annular calcification. Trivial mitral valve insufficiency. Trivial tricuspid valve insufficiency. Moderate aortic stenosis. Right ventricular systolic pressure estimated to be 28 mmHg. No evidence for diastolic dysfunction. Stress Test 1/3/23: Impression: 1. Rest and stress SPECT Cardiolite nuclear imaging demonstrate relative uniform tracer uptake and myocardial perfusion appearing within normal limits. 2. The gated Cardiolite study reports an LVEF of 72%. Carotid duplex ultrasound from 11/15/2021: Interpretation Summary Mild (<50%) stenosis right extracranial internal carotid. Moderate (50-69%) stenosis left extracranial internal carotid. Patent and antegrade vertebrals bilaterally. Assessment and Plan Assessment and Plan (1) Nonrheumatic aortic (valve) stenosis: Status: Chronic Comment: per ECHO 03/06/17 @ [facility]: He underwent repeat echocardiogram on 06/30/2024 that showed normal LV size, LV function 70%, peak aortic valve gradient of 70 mmHg and mean aortic valve gradient of 42 mmHg. He will proceed with heart catheterization to define coronary artery anatomy and depending on results further recommendation will be made. (2) Left carotid stenosis: Status: Chronic Comment: moderate stenosis of Lt internal carotid per Carotid Duplex 03/09/18 @ [facility] Plan: He underwent a carotid duplex ultrasound 11/15/2021 that showed mild stenosis of right extracranial internal carotid and moderate stenosis of the left extracranial internal carotid. He will continue risk factor and lifestyle modification. He will continue current medical therapy with Zetia and Crestor. (3) Pure hypercholesterolemia: Status: Chronic Plan: He states he will be having these checked again by his PCP. In the meantime he will continue his lipid-lowering therapy. (4) Essential hypertension: Status: Chronic Plan: Patient's blood pressure is well-controlled. We will continue to monitor. We will not make any medication regimen changes. His amlodipine is on hold at the present time. Orders: Plan Details Additional Comments: Thank you for allowing us to participate in the patients plan of care, if you have any questions please do not hesitate to call. This note was generated using a voice recognition system and there may be incorrect words, spelling or punctuation that were not noted when reviewing the office note prior to saving. Portions of this documentation were copied and pasted from previous office visit notes to provide a cohesive continuity of the history. The note has been reviewed, edited, and updated, as necessary.
[2024-08-12 14:51] VITALS: BMI 33.3
--- NOTE | 2024-10-11 09:45 | CL.D_ITS ---
Patient Name: PRANAY CUTLER Study Date: 08/16/2024 Performing: Dimitris Bo MD Ht: 64 inches 162.56 cm : 1945 Wt: 194.01 lbs 88 kg Age: 79 Gender: male BSA: 1.93 PROCEDURE(S) PERFORMED [id number])C/COR CLINICAL PROFILE AND INDICATIONS Indications: Valvular Disease Heart Failure: None Stress/Imaging Stress/Image Study Performed: No CAD Presentations: No Sxs, no angina. CONCLUSIONS Normal coronary arteries Aortic Valve Stenosis- Severe RECOMMENDATIONS TAVR DESCRIPTION OF PROCEDURE The patient arrived to the procedure lab. The risks and benefits of the procedure as well as a full description of our services here and current unavailability of surgical backup were fully explained to the patient and/or their significant other prior to the catheterization. The Timeout was completed, verifying the correct patient and procedure. The patient's procedural site was prepped and draped in the usual fashion. Local anesthetic was given subcutaneously to right radial region with Lidocaine 2%. Using a modified Seldinger technique, arterial access was obtained via the right radial artery, a 6Fr sheath was inserted. Right Coronary Artery selective angiography was then performed in multiple views using a 5 Fr. 4.0 [place] catheter. Left Coronary Artery selective angiography was performed in multiple views using a 5 Fr. 4.0 [place] catheter.The arterial sheath was pulled and a TR Band was applied for hemostasis 9 ml of air CORONARY ANGIOGRAPHY DOMINANCE: Right Dominant LEFT HEART ASSESSMENT Left Ventricular Ejection Fraction: by Echo 65 % Normal LV wall motion Normal Left Ventricular systolic function LEFT MAIN: Angiographically normal LEFT ANTERIOR DESCENDING ARTERY: Angiographically normal CIRCUMFLEX ARTERY: Angiographically normal RIGHT CORONARY ARTERY: Angiographically normal VALVE FINDINGS: Aortic Valve Stenosis - severe COMPLICATIONS No Complications PROCEDURE MEDICATIONS Fentanyl 50 mcg IV Versed 1 mg IV Oxygen: 2 L/min via nasal cannula Aspirin (325mg) 1 Tabs PO @ 08/16/2024 08:13:56 Heparin given IA 08/16/2024 09:14:09 Verapamil 2.5mg, 3000 units of Heparin given IA 08/16/2024 09:14:09 SUMMARY OF HEMODYNAMIC DATA Time AIR REST ECG 08:02:46 Art 158/69 (104) 09:27:56 AO 165/91 (122) SA 09:31:35 Signed By Dimitris Bo MD On 08/16/2024 09:46:48 Dimitris Bo MD
== END 2024-08-16 11:00 | disposition home or self-care (01) ==
PROVIDERS: Nurse Practitioner Family; PCP Internal Medicine; Referring Provider Internal Medicine Cardiovascular Disease; Visit Provider Internal Medicine Cardiovascular Disease
DX: I35.0 Nonrheumatic aortic (valve) stenosis (principal); E11.9 Type 2 diabetes mellitus without complications; I10 Essential (primary) hypertension; E78.00 Pure hypercholesterolemia, unspecified; I65.22 Occlusion and stenosis of left carotid artery; E66.9 Obesity, unspecified; R06.02 Shortness of breath; R93.1 Abnormal findings on diagnostic imaging of heart and coronary circulation
CPT/HCPCS: 36415; 71046; 80048; 85025; 93454; 99152; 99153; Q9967; C1769; C1894